=== PATIENT | male | born 1995 | race Caucasian/White ===

== ENCOUNTER 2016-12-31 14:08 | Emergency (ER) | payer MEDICAID ==
[~2016-12-31] VITALS: Ht 170.2 cm; Wt 61.2 kg
[2016-12-31] MEDS ORDERED: PROAIR HFA8.5 GM INH (14:17)
[2016-12-31] MEDS ORDERED: BENTYL10 MG PO (14:17)
[2016-12-31] MEDS ORDERED: BACTRIM DS TAB1 EACH PO (14:37)
== END 2016-12-31 15:06 | disposition home or self-care (01) ==
LOC: ED 14:08
DX: L72.3 Sebaceous cyst (principal); J45.909 Unspecified asthma, uncomplicated; F17.200 Nicotine dependence, unspecified, uncomplicated; Z90.49 Acquired absence of other specified parts of digestive tract; Z88.8 Allergy status to other drugs, medicaments and biological substances; Z79.899 Other long term (current) drug therapy
CPT/HCPCS: 99283; J0696

== ENCOUNTER 2017-01-23 07:55 | Emergency (ER) | payer OTHER ==
[~2017-01-23] VITALS: Ht 170.2 cm; Wt 72.6 kg
[~2017-01-23 07:55] MED LIST: BACTRIM DS TAB1 EACH PO; BENTYL10 MG PO; PROAIR HFA8.5 GM INH
[2017-01-23] MEDS ORDERED: PHENERGAN25 MG (08:09)
== END 2017-01-23 09:52 | disposition home or self-care (01) ==
LOC: ED 07:55
DX: G43.A0 Cyclical vomiting, in migraine, not intractable (principal); J45.909 Unspecified asthma, uncomplicated; F17.200 Nicotine dependence, unspecified, uncomplicated; Z88.8 Allergy status to other drugs, medicaments and biological substances; Z79.899 Other long term (current) drug therapy
CPT/HCPCS: 80053; 82150; 83690; 85025; 96372; 96374; 96375; 99283; J1885; J2405; J3486; J7030

== ENCOUNTER 2017-01-23 20:05 | Emergency (ER) | payer OTHER ==
[~2017-01-23] VITALS: Ht 170.2 cm; Wt 72.6 kg
[~2017-01-23 20:05] MED LIST changes: +PHENERGAN25 MG
== END 2017-01-23 23:06 | disposition home or self-care (01) ==
LOC: ED 20:05
DX: G43.A0 Cyclical vomiting, in migraine, not intractable (principal); J45.909 Unspecified asthma, uncomplicated; Z88.8 Allergy status to other drugs, medicaments and biological substances; Z79.899 Other long term (current) drug therapy; Z90.49 Acquired absence of other specified parts of digestive tract
CPT/HCPCS: 80053; 83690; 85025; 96361; 96372; 96374; 96375; 99282; J1885; J2405; J3486; J7030

== ENCOUNTER 2017-01-28 17:10 | Emergency (ER) | payer OTHER ==
[~2017-01-28] VITALS: Ht 170.2 cm; Wt 60.3 kg
== END 2017-01-28 20:05 | disposition home or self-care (01) ==
LOC: ED 17:10
DX: S61.211A Laceration without foreign body of left index finger without damage to nail, initial encounter (principal); J45.909 Unspecified asthma, uncomplicated; W26.0XXA Contact with knife, initial encounter; Z90.49 Acquired absence of other specified parts of digestive tract; Z88.8 Allergy status to other drugs, medicaments and biological substances; Z79.899 Other long term (current) drug therapy
CPT/HCPCS: 99282

== ENCOUNTER 2017-02-15 20:03 | Emergency (ER) | payer OTHER ==
[~2017-02-15] VITALS: Ht 170.2 cm; Wt 60.3 kg
== END 2017-02-16 01:15 | disposition home or self-care (01) ==
LOC: ED 20:03
DX: G43.A0 Cyclical vomiting, in migraine, not intractable (principal); J45.909 Unspecified asthma, uncomplicated; Z87.891 Personal history of nicotine dependence; Z90.49 Acquired absence of other specified parts of digestive tract; Z88.8 Allergy status to other drugs, medicaments and biological substances; Z98.890 Other specified postprocedural states
CPT/HCPCS: 80053; 83690; 85025; 96372; 96374; 96375; 99283; J1200; J2405; J3486; J7030